=== PATIENT | female | born 1980 | race African-American/Black ===

== ENCOUNTER 2018-12-31 07:54 | Emergency (ER) | payer MEDICAID ==
[~2018-12-31] VITALS: Ht 162.6 cm; Wt 88.5 kg
[~2018-12-31 07:54] MED LIST: ATIVAN1 MG ORAL; FERROUS SULFAT325 MG ORAL; PEPCID20 M1 *
[2018-12-31] MEDS ORDERED: FISH OIL CAP1000 MG ORAL (08:03)
--- NOTE | 2018-12-31 08:07 | NUR ---
ED Nurse Note: Patient walked into ED from home c/o abdominal pain and nausea/vomiting starting last night around 5pm, patient is a/o x4 ambulatory.
[2018-12-31 08:18] VITALS: BP 112/88
[2018-12-31] MEDS ORDERED: Dicyclomine HCl 10mg/5ml oral soln ORAL ONE (08:30)
[2018-12-31] MEDS ORDERED: Isovue-300 100ml vial INJ PRN (08:30)
[2018-12-31] MEDS ORDERED: Lidocaine 2% Visc 15ml soln ORAL ONE (08:30)
[2018-12-31] MEDS ORDERED: Mylanta II UD 30ml ORAL ONE (08:30)
--- NOTE | 2018-12-31 08:34 | Emergency Room Report ---
History of Present Illness General Chief Complaint: Abdominal Pain Source: Patient Present Illness HPI Patient is a 38-year-old female presented after increased abdominal pain. Patient was noted to have increased epigastric pain associated with nausea and vomiting. Patient prior surgery for ovarian cyst but denies other abdominal surgeries. She had onset of symptoms approximately 11 PM. She had reportedly been vomiting multiple times. She had a recent diagnosis of type 2 diabetes. She not currently taking any medications. She denies any fever. She denies any diarrhea. She had noted some increased abdominal distention. She denies being and states that she has been having no menses since ovarian surgery. Allergies: Coded Allergies: PENICILLINS (Verified Allergy, Severe, 12/29/13) Patient History Past Medical History: see triage record Last Menstrual Period: 2017 Now: No Reviewed Nursing Documentation: PMH: Agreed; PSxH: Agreed Nursing Documentation-PMH Past Medical History: No History, Except For Hx Diabetes: Yes Review of Systems All Other Systems: negative except mentioned in HPI Physical Exam Vital Signs Date Time Temp Pulse Resp B/P (MAP) Pulse Ox O2 Delivery O2 Flow Rate FiO2 12/31/18 07:57 98.1 91 18 112/88 98 Room Air Sp02 EP Interpretation: reviewed, normal General Appearance: normal inspection, well appearing, no apparent distress, alert, GCS 15, non-toxic Head: atraumatic ENT: normal ENT inspection, hearing grossly normal, normal voice Neck: normal inspection, full range of motion, supple, no bony tend Respiratory: normal inspection, lungs clear, normal breath sounds, no respiratory distress, no retraction, no wheezing Cardiovascular #1: regular rate, rhythm, no edema Gastrointestinal: normal inspection, normal bowel sounds, non tender, soft, no guarding, no hernia Genitourinary: no CVA tenderness Musculoskeletal: normal inspection, back normal, normal range of motion Neurologic: normal inspection, alert, oriented x3, responsive, early childhood lead teacher III-XII nml as tested, speech normal Psychiatric: normal inspection, judgement/insight normal, mood/affect normal Skin: normal inspection, normal color, no rash Medical Decision Making ER Course Patient presented for abdominal pain. Differential diagnoses included ischemic bowel, appendicitis, perforated viscus, abdominal aortic aneurysm, inferior myocardial infarction, viral gastroenteritis among others. Because of complexity of patient's case laboratory testing and imaging studies were ordered. Patient was given IV fluids as well as IV antiemetics. Last Vital Signs Date Time Temp Pulse Resp B/P (MAP) Pulse Ox O2 Delivery O2 Flow Rate FiO2 12/31/18 08:20 91 18 Room Air 12/31/18 08:18 98.1 112/88 98 Referrals: NON PHYSICIAN (PCP) Ric Pablo MD Dec 31, 2018 08:34
[2018-12-31 08:51] LABS: APPEARANCE,URINE CLEAR; BILIRUBIN, URINE NEGATIVE (NEGATIVE); GLUCOSE, URINE (UA) NEGATIVE (NEGATIVE); KETONES,URINE NEGATIVE (NEGATIVE); LEUKOCYTE ESTERASE ,URINE 1+ (NEGATIVE); NITRITE,URINE NEGATIVE (NEGATIVE); PH,URINE 7 (4.5-8.0); PROTEIN,URINE NEGATIVE (NEGATIVE); UROBILINOGEN,URINE NORMAL MG/DL (0.0-1.0)
[2018-12-31 08:58] LABS: COLOR,URINE PALE YELLOW
[2018-12-31 08:59] LABS: HEMATOCRIT 50.2 % (37.0-47.0); HEMOGLOBIN 16.4 G/DL (12.0-16.0); MEAN CORPUSCULAR VOLUME 91 FL (80-99); PLATELET COUNT 191 K/UL (150-450); RED BLOOD COUNT 5.52 M/UL (4.20-5.40); RED CELL DISTRIBUTION WIDTH 12.8 % (11.6-14.8); WHITE BLOOD COUNT 9.9 K/UL (4.8-10.8)
[2018-12-31 09:12] LABS: ANION GAP 8 mmol/L (5-15); BLOOD UREA NITROGEN 14 mg/dL (7-18); CALCIUM 9.4 MG/DL (8.5-10.1); CARBON DIOXIDE 28 MMOL/L (21-32); CHLORIDE 104 MMOL/L (98-107); CREATININE 0.9 MG/DL (0.55-1.30); INR 1.1 (0.9-1.1); POTASSIUM 4.3 MMOL/L (3.5-5.1); SODIUM 140 MMOL/L (136-145)
[2018-12-31 09:16] LABS: ALANINE AMINOTRANSFERASE 23 U/L (12-78); ALBUMIN 3.7 G/DL (3.4-5.0); ALBUMIN/GLOBULIN RATIO 0.9 (1.0-2.7); ALKALINE PHOSPHATASE 105 U/L (46-116); ASPARTATE AMINO TRANSFERASE 20 U/L (15-37); BILIRUBIN,TOTAL 0.6 MG/DL (0.2-1.0)
--- NOTE | 2018-12-31 09:34 | NUR ---
ED Nurse Note: Patient went down for CT
--- NOTE | 2018-12-31 09:52 | NUR ---
ED Nurse Note: patient came back from CT
--- NOTE | 2018-12-31 10:09 | Diagnostic Imaging Report ---
EXAM: CT Abdomen and Pelvis With Intravenous Contrast CLINICAL HISTORY: ABD PAIN TECHNIQUE: Axial computed tomography images of the abdomen and pelvis with intravenous contrast. CTDI is 17.05 mGy and DLP is 905 mGy-cm. One or more of the following dose reduction techniques were used: automated exposure control, adjustment of the mA and/or kV according to patient size, use of iterative reconstruction technique. COMPARISON: No relevant prior studies available. FINDINGS: Lung bases: Mild right lung base atelectasis. Mediastinum: Small hiatal hernia. ABDOMEN: Liver: Mild hepatomegaly. Gallbladder and bile ducts: Distended gallbladder. Slightly prominent CBD. No calcified stones. Pancreas: Unremarkable. No mass. No ductal dilation. Spleen: Unremarkable. No splenomegaly. Adrenals: Unremarkable. No mass. Kidneys and ureters: 4.5 cm right renal cyst. No hydronephrosis. Stomach and bowel: Fluid-filled small bowel loops. Consider mild enteritis. Moderate stool in colon. No bowel obstruction. PELVIS: Appendix: Appendix not seen. No findings to suggest acute appendicitis. Bladder: Unremarkable. No mass. Reproductive: Uterus and adnexa unremarkable. ABDOMEN and PELVIS: Intraperitoneal space: Unremarkable. No free air. No significant fluid collection. Bones/joints: No acute fracture. No dislocation. Soft tissues: Unremarkable. Vasculature: Unremarkable. No abdominal aortic aneurysm. Lymph nodes: Small mesenteric lymph nodes. IMPRESSION: 1. Fluid-filled small bowel loops. Consider mild enteritis. Moderate stool in colon. No bowel obstruction. 2. 4.5 cm right renal cyst. No obstructive uropathy. 3. Distended gallbladder. Slightly prominent CBD. 4. Appendix not seen, no secondary evidence of appendicitis.
--- NOTE | 2018-12-31 10:34 | NUR ---
ED Nurse Note: 2 apple juice given to patient as ordered by Dr. Pablo.
[2018-12-31] MEDS ORDERED: ZOFRAN4 MG ORAL (11:49)
[2018-12-31] MEDS ORDERED: DICYCLOMINE HCL10 MG PO (11:49)
[2018-12-31 11:50] VITALS: BP 131/87
--- NOTE | 2018-12-31 11:50 | NUR ---
ED Nurse Note: Pt is cleared by ER MD for discharge. DC instructions/prescription was given and explained to pt and verbalized understanding of teachings. All medical devices such as ID band/IV removed. Pt is AAO x4, ambulatory and left with all personal belongings.
== END 2018-12-31 11:50 | disposition home or self-care (01) ==
LOC: EMR 08:19
DX: R10.13 Epigastric pain (principal); R11.2 Nausea with vomiting, unspecified; E11.9 Type 2 diabetes mellitus without complications; Z88.0 Allergy status to penicillin
CPT/HCPCS: 36415; 74177; 80053; 81003; 81025; 82962; 83690; 85007; 85025; 85610; 85730; 86850; 86900; 86901; 96361; 96374; 99284; J2405; Q9967

== ENCOUNTER 2019-04-02 17:53 | Emergency (ER) | payer MEDICAID ==
[~2019-04-02] VITALS: Ht 161.3 cm; Wt 90.7 kg
[~2019-04-02 17:53] MED LIST changes: +DICYCLOMINE HCL10 MG PO; +FISH OIL CAP1000 MG ORAL; +ZOFRAN4 MG ORAL
[2019-04-02] MEDS ORDERED: NKM (18:03)
[2019-04-02 18:10] VITALS: BP 114/78
--- NOTE | 2019-04-02 18:10 | NUR ---
ED Nurse Note: pt brought in to ER by nusrat c/o BLE numbness for last 2 days. pt aao x4 and ambulatory. skin clean and intact. pt able to move and change position in bed. pt on cardiac cath technologist. pt denied chest pain or muscle pain in body.
[2019-04-02 18:42] LABS: APPEARANCE,URINE CLEAR; BILIRUBIN, URINE NEGATIVE (NEGATIVE); COLOR,URINE PALE YELLOW; GLUCOSE, URINE (UA) NEGATIVE (NEGATIVE); KETONES,URINE NEGATIVE (NEGATIVE); LEUKOCYTE ESTERASE ,URINE 1+ (NEGATIVE); NITRITE,URINE NEGATIVE (NEGATIVE); PH,URINE 5 (4.5-8.0); PROTEIN,URINE NEGATIVE (NEGATIVE); UROBILINOGEN,URINE NORMAL MG/DL (0.0-1.0)
--- NOTE | 2019-04-02 18:47 | NUR ---
ED Nurse Note: blood and urine sent to the lab.
[2019-04-02 18:58] LABS: BASOPHILS % (AUTO) 2.2 % (0.0-2.0); HEMATOCRIT 43.5 % (37.0-47.0); HEMOGLOBIN 14.5 G/DL (12.0-16.0); LYMPHOCYTES % (AUTO) 29.6 % (20.0-45.0); MEAN CORPUSCULAR VOLUME 87 FL (80-99); MONOCYTES % (AUTO) 6.1 % (1.0-10.0); NEUTROPHILS % (AUTO) 58.2 % (45.0-75.0); PLATELET COUNT 212 K/UL (150-450); RED BLOOD COUNT 4.97 M/UL (4.20-5.40); WHITE BLOOD COUNT 7.4 K/UL (4.8-10.8)
--- NOTE | 2019-04-02 19:03 | NUR ---
HAND-OFF: Report given to XIN Grover. no order to carry out at this moment.
[2019-04-02 19:11] LABS: ANION GAP 9 mmol/L (5-15); BLOOD UREA NITROGEN 11 mg/dL (7-18); CALCIUM 9.5 MG/DL (8.5-10.1); CARBON DIOXIDE 24 MMOL/L (21-32); CHLORIDE 107 MMOL/L (98-107); CREATININE 0.8 MG/DL (0.55-1.30); POTASSIUM 3.6 MMOL/L (3.5-5.1); SODIUM 140 MMOL/L (136-145)
--- NOTE | 2019-04-02 19:15 | NUR ---
ED Nurse Note: RECIEVED REPORT FROM AM NURSE TO RESUME CARE, PT IS IN BED AWAKE, ALERT AND ORIENTED X 4, EATING HAMBURGER, PT IS ON CARDIAC MONITORING, DENIES PAIN, NO SOB OR LABORED BREATHING, SALINE LOCK INTACT AND PATENT, PT HAS AMILY AT BEDSIDE, PT IS BEING PREPARED FOR DISCHARGE, WILL RESUME CARE AND D/C APPROPRIATE.
--- NOTE | 2019-04-02 19:16 | Emergency Room Report ---
History of Present Illness General Chief Complaint: General Complaint Source: Patient, Medical Record Present Illness HPI This patient states that she is recently homeless. She states she has been trying all her options but has been unable to find a safe place to live. She has been sleeping in her car. She states that it has been hot and she has been driving a lot. She reports that over the past few days she has developed swelling in both of her ankles and legs. She states that they are sore and tingly. She states she has had this in the past previously but not quite to this level. She denies fever or chills. She denies nausea or vomiting. She denies injury. She denies pain. She has no other complaints. Allergies: Coded Allergies: PENICILLINS (Verified Allergy, Severe, 12/29/13) Patient History Past Medical History: see triage record, DM, other - HLP Social History: Denies: smoking, alcohol use, drug use Last Menstrual Period: 2016 Reviewed Nursing Documentation: PMH: Agreed; PSxH: Agreed Nursing Documentation-PMH Past Medical History: No History, Except For Hx Diabetes: Yes Review of Systems All Other Systems: negative except mentioned in HPI Physical Exam Vital Signs Date Time Temp Pulse Resp B/P (MAP) Pulse Ox O2 Delivery O2 Flow Rate FiO2 04/02/19 18:01 98.1 80 16 114/78 (90) 95 Room Air Sp02 EP Interpretation: reviewed, normal General Appearance: no apparent distress, alert, GCS 15, non-toxic Head: normocephalic, atraumatic Eyes: bilateral eye normal inspection, bilateral eye PERRL ENT: hearing grossly normal, normal pharynx, no angioedema, normal voice Neck: full range of motion, supple/symm/no masses Respiratory: chest non-tender, lungs clear, normal breath sounds, no respiratory distress, no retraction, no accessory muscle use, speaking full sentences Cardiovascular #1: regular rate, rhythm, edema - 2+pitting edema BLE Gastrointestinal: normal bowel sounds, non tender, soft, non-distended, no guarding, no rebound Rectal: deferred Musculoskeletal: back normal, gait/station normal, normal range of motion, non- tender Neurologic: alert, oriented x3, responsive, motor strength/tone normal, sensory intact, speech normal Psychiatric: judgement/insight normal, memory normal, mood/affect normal, no suicidal/homicidal ideation Skin: normal color, no rash, warm/dry, well hydrated Medical Decision Making Diagnostic Impression: Primary Impression: Lymphedema ER Course This patient has lymphedema. This is likely secondary to the recent heat wave and the patient's homeless status. She does have a history of this. Overall, the patient is well-appearing. I did give the patient a diuretic. The patient did request to speak with the social group worker. She is educated that the social group worker would be available tomorrow morning during business hours. I will discharge the patient at this time and that she will await evaluation by the social group worker tomorrow morning. Laboratory Tests Test 04/02/19 18:35 04/02/19 18:45 Urine Color Pale yellow Urine Appearance Clear Urine pH 5 (4.5-8.0) Urine Specific Emmett 1.020 (1.005-1.035) Urine Protein Negative (NEGATIVE) Urine Glucose (UA) Negative (NEGATIVE) Urine Ketones Negative (NEGATIVE) Urine Blood Negative (NEGATIVE) Urine Nitrite Negative (NEGATIVE) Urine Bilirubin Negative (NEGATIVE) Urine Urobilinogen Normal MG/DL (0.0-1.0) Urine Leukocyte Esterase 1+ (NEGATIVE) H Urine RBC 0-2 /HPF (0 - 2) Urine WBC 0-2 /HPF (0 - 2) Urine Squamous Epithelial Cells Moderate /LPF (NONE/OCC) H Urine Bacteria Moderate /HPF (NONE) H Urine HCG, Qualitative Negative (NEGATIVE) White Blood Count 7.4 K/UL (4.8-10.8) Red Blood Count 4.97 M/UL (4.20-5.40) Hemoglobin 14.5 G/DL (12.0-16.0) Hematocrit 43.5 % (37.0-47.0) Mean Corpuscular Volume 87 FL (80-99) Mean Corpuscular Hemoglobin 29.1 PG (27.0-31.0) Mean Corpuscular Hemoglobin Concent 33.3 G/DL (32.0-36.0) Red Cell Distribution Width 12.0 % (11.6-14.8) Platelet Count 212 K/UL (150-450) Mean Platelet Volume 5.6 FL (6.5-10.1) L Neutrophils (%) (Auto) 58.2 % (45.0-75.0) Lymphocytes (%) (Auto) 29.6 % (20.0-45.0) Monocytes (%) (Auto) 6.1 % (1.0-10.0) Eosinophils (%) (Auto) 4.0 % (0.0-3.0) H Basophils (%) (Auto) 2.2 % (0.0-2.0) H Sodium Level 140 MMOL/L (136-145) Potassium Level 3.6 MMOL/L (3.5-5.1) Chloride Level 107 MMOL/L (98-107) Carbon Dioxide Level 24 MMOL/L (21-32) Anion Gap 9 mmol/L (5-15) Blood Urea Nitrogen 11 mg/dL (7-18) Creatinine 0.8 MG/DL (0.55-1.30) Estimate Glomerular Filtration Rate > 60 mL/min (>60) Glucose Level 105 MG/DL (74-106) Calcium Level 9.5 MG/DL (8.5-10.1) Total Bilirubin 0.2 MG/DL (0.2-1.0) Aspartate Amino Transferase (AST) 21 U/L (15-37) Alanine Aminotransferase (ALT) 19 U/L (12-78) Alkaline Phosphatase 90 U/L (46-116) Total Creatine Kinase 165 U/L (26-308) Total Protein 7.3 G/DL (6.4-8.2) Albumin 3.7 G/DL (3.4-5.0) Globulin 3.6 g/dL Albumin/Globulin Ratio 1.0 (1.0-2.7) Last Vital Signs Date Time Temp Pulse Resp B/P (MAP) Pulse Ox O2 Delivery O2 Flow Rate FiO2 04/02/19 18:10 98.1 82 16 114/78 95 Room Air Status: improved Disposition: HOME, SELF-CARE Condition: Improved [facility]errals: [facility],REFERR[facility] (PCP) Valorie Green DO Apr 02, 2019 19:16
[2019-04-02 19:17] LABS: ALANINE AMINOTRANSFERASE 19 U/L (12-78); ALBUMIN 3.7 G/DL (3.4-5.0); ALKALINE PHOSPHATASE 90 U/L (46-116); ASPARTATE AMINO TRANSFERASE 21 U/L (15-37); BILIRUBIN,TOTAL 0.2 MG/DL (0.2-1.0); CREATINE KINASE 165 U/L (26-308)
[2019-04-02] MEDS ORDERED: FUROSEMIDE20 M1 ORAL (19:40)
[2019-04-02 20:00] VITALS: BP 114/79
[2019-04-02 20:17] VITALS: BP 114/79
--- NOTE | 2019-04-03 09:37 | NUR ---
ED Nurse Note: CHECKER DUMP GROUNDS WITH PT FOR CONSULT.
--- NOTE | 2019-04-03 10:00 | NUR ---
Social Service Note SW met with patient to assess for homelessness. Patient is alert,oriented and verbally responsive. Patient states she has been on and off homeless for about 1 year. 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 Patient is residing in her car. Patient states she is unable to stay with family. Patient states she was utilizing [facility] assisted but doesn't feel they were doing anything to help her. KEILY discussed the following resources, [employer] [facility] [place], [facility]'s [place] and the Homeless Service Program through her health plan at [facility] ([facility] [employer] [phone]). KEILY provided patient with the address and phone number of her medical clinic [address] [facility] [address], . Patient was receptive with all referral. Patient's car in [place]. Patient's emergency contact is [facility] [phone]. KEILY discussed with primary nurse and ER MD.
== END 2019-04-02 20:17 | disposition home or self-care (01) ==
LOC: EMR 18:25
DX: I89.0 Lymphedema, not elsewhere classified (principal); E11.9 Type 2 diabetes mellitus without complications; Z59.0 Homelessness; E78.5 Hyperlipidemia, unspecified; Z88.0 Allergy status to penicillin
CPT/HCPCS: 36415; 80053; 81003; 81025; 82550; 85025; 87086; 87181; 99284

== ENCOUNTER 2020-01-03 17:49 | Emergency (ER) | payer MEDICAID ==
[~2020-01-03] VITALS: Ht 160 cm; Wt 86.2 kg
[~2020-01-03 17:49] MED LIST changes: +FUROSEMIDE20 M1 ORAL; +NKM
[2020-01-03 18:03] VITALS: BP 110/79
--- NOTE | 2020-01-03 18:04 | NUR ---
ED Nurse Note:pt. came with URI no recent travel or fever
--- NOTE | 2020-01-03 18:19 | Emergency Room Report ---
History of Present Illness General Chief Complaint: Upper Respiratory Illness Source: Patient Present Illness HPI 39-year-old female who is a heavy tobacco smoker here complaining of 2 days of generalized body ache, cough and congestion. Denies any sore throat, recent travel, clinic clinic will who have travel. 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 Complains of history of asthma however does not have her inhaler. Denies any chest pain, shortness of breath, palpitation, headache and dizziness at this time. Denies abdominal pain, nausea vomiting. Appears to be afebrile, and vital signs are otherwise within normal limits.. Denies . COVID-19 risk:Travel to affect: No Has patient experienced madsen: No Allergies: Coded Allergies: PENICILLINS (Verified Allergy, Severe, 12/29/13) Patient History Past Medical History: see triage record Past Surgical History: none Pertinent Family History: none Social History: Reports: smoking Last Menstrual Period: menopause Now: No Immunizations: UTD Reviewed Nursing Documentation: PMH: Agreed; PSxH: Agreed Nursing Documentation-PMH Hx Diabetes: Yes Review of Systems All Other Systems: negative except mentioned in HPI Physical Exam Vital Signs Date Time Temp Pulse Resp B/P (MAP) Pulse Ox O2 Delivery O2 Flow Rate FiO2 01/03/20 17:56 98.1 69 22 110/79 (89) 95 Room Air Sp02 EP Interpretation: reviewed, normal General Appearance: no apparent distress, alert, GCS 15, non-toxic Head: normocephalic, atraumatic Eyes: bilateral eye normal inspection, bilateral eye PERRL ENT: hearing grossly normal, normal pharynx, no angioedema, normal voice Neck: full range of motion, supple, thyroid normal, no meningismus, no bony tend, supple/symm/no masses Respiratory: chest non-tender, lungs clear, normal breath sounds, no rhonchi, no respiratory distress, no retraction, no accessory muscle use, no wheezing, speaking full sentences Cardiovascular #1: regular rate, rhythm, no edema, no murmur Gastrointestinal: normal bowel sounds, non tender, soft, non-distended, no guarding, no rebound Rectal: deferred Genitourinary: no CVA tenderness Musculoskeletal: back normal, no calf tenderness Neurologic: alert, motor strength/tone normal, oriented x3, sensory intact, responsive, speech normal Psychiatric: judgement/insight normal, memory normal, mood/affect normal, no suicidal/homicidal ideation Skin: no rash Lymphatic: no adenopathy Medical Decision Making PA Attestation All my diagnosis and treatment plans were reviewed ad discussed with my supervising physician Dr. Pablo Diagnostic Impression: Primary Impression: Pneumonitis ER Course 39-year-old female who is a heavy tobacco smoker here complaining of 2 days of generalized body ache, cough and congestion. Denies any sore throat, recent travel, clinic clinic will who have travel. 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 Complains of history of asthma however does not have her inhaler. Denies any chest pain, shortness of breath, palpitation, headache and dizziness at this time. Denies abdominal pain, nausea vomiting. Appears to be afebrile, and vital signs are otherwise within normal limits.. Denies . Ddx considered but are not limited to: bronchitis, PNA, URI viral, bacterial bronchitis, pneumonitis Vital signs: are WNL, pt. is afebrile H&PE are most consistent with: Pneumonitis ORDERS: Tamiflu, azithromycin, Phenergan DM for nighttime, guaifenesin, albuterol, patient to be treated with antibiotics And antivirals due to being a heavy smoker ED INTERVENTIONS: None required at this time. DISCHARGE: At this time pt. is stable for d/c to home. Will provide printed patient care instructions, and any necessary prescriptions. Care plan and follow up instructions have been discussed with the patient prior to discharge. Take medication as directed, follow-up primary care provider, increase oral hydration, if worsening symptoms return to the emergency room Last Vital Signs Date Time Temp Pulse Resp B/P (MAP) Pulse Ox O2 Delivery O2 Flow Rate FiO2 01/03/20 18:03 69 22 Room Air 01/03/20 18:03 98.1 110/79 95 Disposition: HOME, SELF-CARE Condition: Stable Scripts Albuterol Sulfate (VENTOLIN HFA) 18 Gm Hfa.aer.ad 2 PUFFS INH EVERY 6 HOURS, #18 GM 0 Refills Prov: Jairo Britton 01/03/20 Guaifenesin* (GUAIFENESIN*) 100 Mg/5 Ml Liquid 15 ML ORAL Q6H, #120 ML 0 Refills Prov: Jairo Britton 01/03/20 D-Methorphan Hb/Prometh Hcl* (PROMETHAZINE-DM SYRUP*) 118 Ml Syrup 5 ML ORAL BEDTIME PRN for For Cough, #120 ML 0 Refills Prov: Jairo Britton 01/03/20 Azithromycin* (ZITHROMAX*) 250 Mg Tablet 250 MG ORAL DAILY, #6 TAB 0 Refills Take two tables once daily for 1 day, then one tablet once daily for 4 days. Prov: Jaior Britton 01/03/20 Oseltamivir Phosphate (Tamiflu) 75 Mg Capsule 75 MG ORAL TWICE A DAY for 5 Days, #10 CAP Prov: Jairo Britton 01/03/20 Patient Instructions: Pneumonitis Additional Instructions: Take medication as directed, follow-up primary care provider, increase oral hydration, if worsening symptoms return to the emergency room Jairo Britton Jan 03, 2020 18:19
[2020-01-03] MEDS ORDERED: ZITHROMAX250 MG ORAL (18:21)
[2020-01-03] MEDS ORDERED: PROMETHAZINE-D118 ML ORAL (18:21)
[2020-01-03] MEDS ORDERED: TAMIFLU75 MG ORAL (18:21)
[2020-01-03] MEDS ORDERED: VENTOLIN HFA18 GM INH (18:21)
[2020-01-03] MEDS ORDERED: GUAIFENESI100 MG/5 M ORAL (18:21)
[2020-01-03 18:25] VITALS: BP 110/79
--- NOTE | 2020-01-03 18:25 | NUR ---
ER DISCHARGE NOTE: Patient is cleared to be discharged per ERMD, pt is aox4, on room air, with stable vital signs. pt was given dc and prescription instructions, pt was able to verbalize understanding, pt is able to ambulate with steady gait. pt took all belongings.
== END 2020-01-03 18:25 | disposition home or self-care (01) ==
LOC: EMR 18:06
DX: J18.9 Pneumonia, unspecified organism (principal); E11.9 Type 2 diabetes mellitus without complications; F17.200 Nicotine dependence, unspecified, uncomplicated; Z88.0 Allergy status to penicillin
CPT/HCPCS: 99282

== ENCOUNTER 2020-12-27 21:45 | Emergency (ER) | payer MEDICAID ==
[~2020-12-27] VITALS: Ht 160 cm; Wt 54.4 kg
[~2020-12-27 21:45] MED LIST changes: +GUAIFENESI100 MG/5 M ORAL; +PROMETHAZINE-D118 ML ORAL; +TAMIFLU75 MG ORAL; +VENTOLIN HFA18 GM INH; +ZITHROMAX250 MG ORAL
--- NOTE | 2020-12-27 22:07 | Emergency Room Report ---
History of Present Illness General Chief Complaint: Upper Respiratory Illness Source: Patient Present Illness HPI Patient is a 40-year-old female presents for increased nasal congestion and sinus pressure. Prior history of seasonal allergies as well as asthma. Normally takes Zyrtec as well as nasal steroid. Reports having increased nasal pressure as well as intermittent cough. Denies any fever. Patient states that she gets Covid tested regularly and had previous negative Covid testing. Patient currently has not been having any shortness of breath or body aches and chills. Denies being . Allergies: Coded Allergies: PENICILLINS (Verified Allergy, Severe, 12/27/20) COVID-19 Screening Contact w/high risk pt: No Experienced COVID-19 symptoms?: Yes COVID-19 Testing performed SALES SUPPORT ASSISTANT: No Patient History Past Medical History: see triage record Last Menstrual Period: NA Reviewed Nursing Documentation: PMH: Agreed; PSxH: Agreed Nursing Documentation-PMH Hx Diabetes: Yes Review of Systems All Other Systems: negative except mentioned in HPI Physical Exam Vital Signs Date Time Temp Pulse Resp B/P (MAP) Pulse Ox O2 Delivery O2 Flow Rate FiO2 12/27/20 21:48 98.1 88 14 125/88 (100) 96 Room Air Sp02 EP Interpretation: reviewed, normal General Appearance: normal inspection, well appearing, no apparent distress, alert, GCS 15, non-toxic Head: atraumatic ENT: normal ENT inspection, hearing grossly normal, normal voice Neck: normal inspection, full range of motion, supple, no bony tend Respiratory: normal inspection, lungs clear, normal breath sounds, no respiratory distress, no retraction, no wheezing Cardiovascular #1: regular rate, rhythm, no edema Gastrointestinal: normal inspection, normal bowel sounds, non tender, soft, no guarding, no hernia Genitourinary: no CVA tenderness Musculoskeletal: normal inspection, back normal, normal range of motion Neurologic: alert, motor strength/tone normal, network administrator III-XII nml as tested, responsive, speech normal, normal inspection Psychiatric: normal inspection, judgement/insight normal, mood/affect normal Medical Decision Making Diagnostic Impression: Primary Impression: Allergic rhinitis Additional Impression: Upper respiratory infection ER Course Patient presents for nasal congestion. Differential diagnosis include was not limited to seasonal allergies, coronavirus infection, upper respiratory infection among others. Patient has a benign exam and does not appear to r equire any imaging at this time. Patient shows no evidence of acute respiratory difficulty. Lungs are currently clear. Does appear to have some increased nasal mucosal swelling. This appears to be consistent with seasonal allergies. Coronavirus testing was negative.Patient advised to follow-up with her regular coronavirus testing and to continue to wear a mask. She was advised to continue take her medications for seasonal allergies. Patient was given prescription for azithromycin if symptoms persist greater than 3 weeks or she develop fever. This medical record is generated with [employer] muff winder software. There may be some muff winder discrepancies related to use of this software Last Vital Signs Date Time Temp Pulse Resp B/P (MAP) Pulse Ox O2 Delivery O2 Flow Rate FiO2 12/27/20 21:48 98.1 88 14 125/88 (100) 96 Room Air Status: improved Disposition: HOME, SELF-CARE Condition: Stable Scripts Azithromycin* (ZITHROMAX*) 250 Mg Tablet 250 MG ORAL DAILY, #6 TAB 0 Refills Take two tables once daily for 1 day, then one tablet once daily for 4 days. Prov: Ric Pablo MD 12/27/20 Ric Pablo MD Dec 27, 2020 22:07
[2020-12-27] MEDS ORDERED: Oxymetazoline 0.05% Na Spray 30ml NASAL ONE (22:15)
[2020-12-27 22:26] VITALS: BP 125/88
--- NOTE | 2020-12-27 22:43 | NUR ---
ED Nurse Note: pt came from home with complaints of worsening nasal congestion and cough, AOx4, ambulatory, no complaints of pain, vitals stable, covid specimen collected and sent to lab
[2020-12-27] MEDS ORDERED: ZITHROMAX250 MG ORAL (23:10)
[2020-12-27 23:22] VITALS: BP 125/84
--- NOTE | 2020-12-27 23:23 | NUR ---
ER DISCHARGE NOTE: Patient is cleared to be discharged per ERMD, pt is aox4, on room air, with stable vital signs. pt was given dc and prescription instructions, pt was able to verbalize understanding, pt id band and iv site removed without complications. pt is able to ambulate with steady gait. pt took all belongings.
== END 2020-12-27 23:23 | disposition home or self-care (01) ==
LOC: EMR 22:05
DX: J30.9 Allergic rhinitis, unspecified (principal); J06.9 Acute upper respiratory infection, unspecified; E11.9 Type 2 diabetes mellitus without complications; Z79.899 Other long term (current) drug therapy; Z88.0 Allergy status to penicillin
CPT/HCPCS: 99283